=== PATIENT | female | born 2000 | race Caucasian/White ===

== ENCOUNTER 2021-04-03 18:16 | Emergency (ER) | payer OTHER ==
[~2021-04-03] VITALS: Ht 167.6 cm; Wt 55.9 kg
[2021-04-03 18:41] VITALS: TEMP 98.4
[2021-04-03 18:57] LABS: COLLECTION METHOD CLEAN CATCH
[2021-04-03 19:03] LABS: MUCOUS Present /lpf; PH 6 (5-8); SQUAMOUS EPITHELIAL 0-2 /hpf; URINE APPEARANCE Clear; URINE BACTERIA None Seen /hpf; URINE BILIRUBIN Negative (NEGATIVE); URINE BLOOD Negative (NEGATIVE); URINE COLOR Yellow; URINE GLUCOSE Negative (NEGATIVE); URINE KETONE Negative (NEGATIVE); URINE LEUKOCYTE ESTERASE Negative (NEGATIVE); URINE NITRATE Negative (NEGATIVE); URINE PROTEIN(semi-quant) Negative (NEGATIVE); URINE RBC 0-2 /hpf; URINE UROBILINOGEN Negative (NEGATIVE)
[2021-04-03 19:36] LABS: BASO # 0.1 (0.0-0.2); BASO % 0.7 % (0.0-2.0); EOS # 0.3 (0.0-0.7); EOS % 4.3 % (0-4.0); GRAN # 4.1 (1.4-6.5); GRAN % 58.4 % (42.2-75.2); HEMOGLOBIN 11.6 g/dl (12.0-15.0); LYMPH # 1.8 (1.2-3.4); LYMPH % 25.8 % (20.0-51.0); MEAN CELL VOLUME 83 fl (80.0-95.0); MEAN CORPUSCULAR HEMOGLOBIN 28 pg (26.0-32.0); MEAN CORPUSCULAR HGB CONC 33 g/dl (33.0-37.0); MEAN PLATELET VOLUME 10.1 fl (7.4-10.4); MONO # 0.7 (0.1-0.6); MONO % 10.5 % (1.7-9.3); PLATELET COUNT 237 K/mm3 (130-400); RED BLOOD COUNT 4.21 M/mm3 (4.10-5.30); REDCELL DISTRIBUTION WIDTH-CV 13.7 % (11.5-14.5)
[2021-04-03] MEDS ORDERED: PROAMATINE 5MG T5 MG PO (19:45)
[2021-04-03] MEDS ORDERED: TOPROL XL 25MG25 MG PO (19:45)
[2021-04-03 19:46] LABS: ALBUMIN 4.6 gm/dL (3.5-5.0); BILIRUBIN,TOTAL 0.4 mg/dL (0.0-1.0); CALCIUM 9.4 mg/dL (8.4-10.2); CREATININE, serum 0.83 (0.52-1.25); POTASSIUM 3.9 mmol/L (3.4-5.0); TOTAL PROTEIN 7.7 gm/dL (6.4-8.2)
[2021-04-03] MEDS ORDERED: ZOFRAN ODT4 MG PO (21:43)
[2021-04-03] MEDS ORDERED: PERCOCET 325 MG1 TA2 PO (21:43)
[2021-04-03 22:27] VITALS: BP 106/56; PULSE 73
== END 2021-04-03 22:55 | disposition home or self-care (01) ==
LOC: COL.ER 18:16
PROVIDERS: Personal Emergency Response Attendant; Physician Assistant
DX: R10.32 Left lower quadrant pain (principal)
CPT/HCPCS: J2270; J2405; J7030; Q9967

== ENCOUNTER 2023-06-27 13:56 | Outpatient (RCR) | payer OTHER ==
[~2023-06-27 13:56] MED LIST: PERCOCET 325 MG1 TA2 PO; PROAMATINE 5MG T5 MG PO; TOPROL XL 25MG25 MG PO; ZOFRAN ODT4 MG PO
== END 2023-07-11 ==
LOC: WSOH
DX: S00.83XD Contusion of other part of head, subsequent encounter (principal); S06.0X0D Concussion without loss of consciousness, subsequent encounter; Y99.0 Civilian activity done for income or pay